=== PATIENT | female | born 1995 | race American Indian/Alaskan Native ===

== ENCOUNTER 2021-08-19 17:10 | Emergency (ER) | payer MEDICARE ==
[2021-08-19 20:54] VITALS: BP 127/57
--- NOTE | 2021-08-19 23:24 | Emergency Department Report ---
Upper Extremity - HPI Chief Complaint: Wound/Laceration Stated Complaint: RGHT HAND CUT Time Seen by Provider: 08/19/21 23:14 Upper Extremity: Right Thumb Occurred When: Today Mechanism: Other (LACERATION ) Severity: moderate Symptoms: Yes Pain with Movement, Yes Laceration or Abrasion, No Deformity, No Limited Range of Movement, No Numbness, No Weakness, No Swelling, No Bruising/Ecchymosis Other History: 26-year-old female presents to the ER today for evaluation of laceration to the left thumb. Patient states that the injury occurred around 5 PM this afternoon. She states that she was washing a wine glass when it suddenly broke and she was cut by a piece of glass. She has a laceration to the dorsal proximal aspect of the thumb. She reports bleeding which is now controlled and pain. She is right-hand dominant. She is up-to-date on her tetanus. ED Review of Systems ROS: Stated complaint: RGHT HAND CUT Other details as noted in HPI Comment: All other systems reviewed and negative Respiratory: denies: cough, shortness of breath, SOB with exertion, SOB at rest, wheezing Cardiovascular: denies: chest pain, palpitations Skin: other (laceration dorsal right thumb) Neurological: denies: headache, weakness, paresthesias Psychiatric: denies: anxiety, depression Hematological/Lymphatic: denies: easy bleeding, easy bruising ED Past Medical Hx - Past Medical History Previous Medical History?: No - Surgical History Past Surgical History?: Yes Additional Surgical History: Gallbladder - Medications Home Medications: Home Medications Medication Instructions Recorded Confirmed Last Taken Type Acetaminophen/Codeine [Tylenol 1 tab PO Q6H PRN #12 tab 08/20/21 Unknown Rx /Codeine # 3 tab] cephALEXin [Keflex] 500 mg PO Q12HR #10 cap 08/20/21 Unknown Rx Upper Extremity Exam - Exam General: Vital signs noted. No distress. Alert and acting appropriately. Head and Torso: No HEENT Abnormality, No Neck Tenderness, No Chest/Lungs Abnormality, No Abdominal Tenderness, No Back Tenderness Shoulder Exam: Yes Normal Range of Motion in Shoulder, No Shoulder Tenderness, No Clavicle Tenderness, No Shoulder Deformity, No AC Joint Tenderness Arm Exam: No Arm/Humerus Tenderness, No Arm Deformity Elbow: Yes Normal Range of Motion in Elbow, No Elbow Tenderness, No Elbow Deformity Forearm: No Forearm Tenderness, No Forearm Deformity, No Pain with Pronation, No Pain with Supination Wrist: Yes Normal ROM in Wrist, No Wrist Tenderness, No Wrist Deformity, No Snuffbox Tenderness, No Pain with Axial Thumb Compression Hand: Yes Digit Tenderness (There is tenderness to palpation mainly to the laceration which is located to the proximal dorsal aspect of the right thumb. No apparent bony tenderness.), Yes Normal ROM in Digit(s), No Digit(s) Deformity, No Tendon Dysfunction CMS Exam: Yes Broken Skin (There is an approximately 2.5 cm laceration noted to the dorsal proximal aspect of the right thumb. Tendon is exposed and visible through the laceration but does not appear to be injured. Bleeding is well controlled. No apparent foreign body noted.), Yes Normal Distal Pulses, Yes Normal Capillary Refill, Yes Normal Distal Sensation ED Course Vital Signs 08/19/21 20:49 Temperature 98.7 F Pulse Rate 56 L Respiratory 16 Rate Blood Pressure 127/57 [Right] O2 Sat by Pulse 100 Oximetry - Laceration /Wound Repair Right Dorsal Finger Wound Location: upper extremity (right thumb) Wound Length (cm): 2 Wound's Depth, Shape: superficial Wound Explored: clean Irrigated w/ Saline (ccs): 100 Betadine Prep?: Yes Anesthesia: 1% Lidocaine Volume Anesthetic (ccs): 3 (digital block ) Wound Repaired With: sutures Suture Size/Type: 4:0, proline Number of Sutures: 5 Sterile Dressing Applied?: Yes Progress: Patient tolerated procedure well without any complications. Critical care attestation.: If time is entered above; I have spent that time in minutes in the direct care of this critically ill patient, excluding procedure time. ED Disposition Clinical Impression: Finger laceration Disposition: 01 HOME / SELF CARE / HOMELESS Is pt being admited?: No Does the pt Need Aspirin: No Condition: Stable Instructions: Laceration Care, Adult, [id number] Additional Instructions: I recommend that you keep the wound clean daily with soap and water. Dry well after each cleaning. Apply a thin layer of Neosporin after each cleaning. I recommend that you do this until its time to have the stitches removed which would be the next 10 days. Take the antibiotics and the pain medications as prescribed. Return sooner if any signs of infection develop such as pus drainage, increasing pain, swelling or redness. Prescriptions: cephALEXin [Keflex] 500 mg PO Q12HR #10 cap Acetaminophen/Codeine [Tylenol /Codeine # 3 tab] 1 tab PO Q6H PRN #12 tab PRN Reason: Pain , Severe (7-10) Referrals: PRIMARY CARE, [Primary Care Provider] - 3-5 Days Forms: Work/School Release Form(ED) Time of Disposition: 00:32
[2021-08-19] MEDS ORDERED: LIDOCAINE (1%) 10 MG/1 ML VIAL 20 ML MDV INFILTRATI ONE (23:26)
[2021-08-19] MEDS ORDERED: HYDROcodone/ACETAMINOPHEN 5-325 MG TAB PO ONE (23:26)
[2021-08-20] MEDS ORDERED: NEOMY 3.5 MG/BACIT 400 UNITS/POLY B 5000 UNITS/GM OINT PACKET TP ONE (00:27)
== END 2021-08-20 00:46 | disposition home or self-care (01) ==
LOC: ED 17:10
DX: S61.011A Laceration without foreign body of right thumb without damage to nail, initial encounter (principal); Z98.890 Other specified postprocedural states; Z79.899 Other long term (current) drug therapy; W25.XXXA Contact with sharp glass, initial encounter; Y93.89 Activity, other specified; Y92.89 Other specified places as the place of occurrence of the external cause; Y99.8 Other external cause status
CPT/HCPCS: 12001; 99282; J3490